=== PATIENT | male | born 1975 | race Caucasian/White ===

== ENCOUNTER 2018-09-16 13:21 | Observation (INO) ==
--- NOTE | 2018-09-16 14:18 | Emergency Department Note ---
Disposition Clinical Impression: Lower extremity edema Deep vein thrombosis of lower extremity Qualifiers: Affected thrombotic vein of extremity: unspecified lower extremity proximal vein Chronicity: acute Laterality: right Qualified Code(s): I82.4Y1 - Acute embolism and thrombosis of unspecified deep veins of right proximal lower extremity Disposition: Admitted As Inpatient Condition: Good Referrals: NONE,PCP [Non-Partnered Physician] - Forms: ED Satisfaction Letter Time of Disposition: 16:46 Extremity Problem HPI - General Chief complaint: ED Extremity Problem,Nontraumatic Stated complaint: Right leg swelling Time Seen by Provider: 09/16/18 13:32 Source: patient Limitations: no limitations Nursing Notes Reviewed: Yes Vital Signs Reviewed: Yes - History of Present Illness HPI Narrative: Patient is a 43-year-old male whose presenting with right lower leg swelling. Patient with history of hypertension hyperlipidemia. Patient states about one week and a half ago he began to have right leg swelling which progressed up into the thigh, he denies any redness, pain or difficulty ambulating. He denies any similar symptoms in the past. He is currently not on any blood thinners or anti-coagulation medication. No recent fevers, chills, insect bite or trauma. Patient states that a family member has also been diagnosed with multiple DVTs in the past, he denies any history personally or history of pulmonary embolism. 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 Pain Scale: 3 - Related Data Allergies Allergy/AdvReac Type Severity Reaction Status Date / Time No Known Allergies Allergy Verified 09/16/18 13:26 Review of Systems: In addition to that documented in the HPI above, the additional ROS was obtained: General: Denies fever. Denies chills. Denies weight loss. Denies behavioral change. Eyes: Denies visual changes. ENT: Denies nasal congestion. Denies sore throat. Denies hearing change. Cardio: Denies chest pain. Denies palpitations. Respiratory: Denies cough. Denies shortness of breath. Denies wheezing. GI: Denies nausea, Denies vomiting, or diarrhea. Denies hematochezia denies melena. Denies abdominal pain. : Denies dysuria, hematuria, or urinary retention MSK: Affirms right leg swelling without pain Neuro: Denies slurred speech. Denies numbness or tingling. Denies focal weakness. Denies headache. Denies loss of consciousness. Psych: Denies mood changes. Past Medical History - Past Medical History Medical history: Reports: no medical history Psychiatric history: Reports: no psych history - Social History Smoking Status: Former smoker Smokeless Tobacco Status: No Alcohol use: Reports: none Drug use: Reports: none Physical Exam General: Conversant. No apparent distress. Follow commands. Appears stated age. Neck: No JVD. Trachea midline. Neck supple. Eyes: PERRL. No scleral icterus. HENT: Normocephalic and atraumatic. Moist mucus membranes. Cardiovascular: Regular rate and rhythm. Normal S1 and S2. No murmurs appreciated. Normal capillary refill. Extremities well perfused with 2+ distal pulses bilaterally. Patient with extensive swelling to the entire right lower extremity extending proximally to the upper thigh, no redness, erythema, there is no posterior calf pain, there is no cord felt to the posterior aspect, there is no cellulitic skin changes. Pulmonary: Normal and equal breath sounds bilaterally, anteriorly and po steriorly. No wheezes, rales, or rhonchi. Not in respiratory distress. Speaks in full sentences. Abdomen: Soft, nondistended, without tenderness. No bruits or masses. No guarding or rebound. Neuro: Alert and oriented x3. No slurred speech. No focal deficits noted. Skin: No rashes noted on visualized skin. Musculoskeletal: No bony abnormalities visualized. Moves all extremities. Psych: Normal mood. Pleasant. Makes appropriate eye contact. - General Limitations: no limitations General appearance: alert, in no apparent distress Course Vital Signs Temperature 97.5 F L 09/16/18 13:26 Pulse Rate 90 09/16/18 13:26 Respiratory Rate 09/16/18 13:26 Blood Pressure 163/106 09/16/18 13:26 O2 Sat by Pulse Oximetry 99 09/16/18 13:26 Temperature 97.5 F L 09/16/18 13:51 Pulse Rate 90 09/16/18 13:51 Respiratory Rate 20 09/16/18 13:51 Blood Pressure 163/106 09/16/18 13:51 O2 Sat by Pulse Oximetry 99 09/16/18 13:51 Oxygen Delivery Oxygen Delivery Room Air Extremity Problem, Nontraumati - MDM Narrative Medical decision making narrative: Patient is a 43-year-old male who is presenting with right leg swelling. On arrival, patient is alert and no acute distress, alert and oriented 3, he does have extensive swelling to the right lower leg greater than the left, there is no erythema, pulses distally are intact. Sensation as well as range of motion are intact, no difficulty with ambulation. CBC, BMP as well as PT, INR as well as PTT are performed. Venous ultrasound of the right lower extremity will be performed as well. Laboratory work was reviewed and unremarkable. Venous ultrasound revealed extensive venous deep thrombus with SVT as well. Given the extensive nature of the thrombus, would recommend at this point in time the patient be admitted for heparin and continued evaluation and follow-up. I did discuss this with the patient, he agrees to admission at this point in time. Patient is remained stable and in no acute distress. Patient was signed out to the hospitalist, who is excepted the patient. - Medical Records Medical records reviewed: Yes I reviewed the patient's medical records. - Lab Data Lab results reviewed: Yes I reviewed the patient's lab results. Result diagrams: 09/16/18 14:17 09/16/18 14:17 Lab Results 09/16/18 09/16/18 09/16/18 Range/Units 14:17 14:17 14:17 WBC 9.4 (4.3-11.1) K/mcL RBC 4.60 (4.19-5.50) M/mcL Hgb 14.5 (12.9-16.9) g/dL Hct 43.8 (37.5-50.1) % MCV 95.2 (83.0-100.0) fL MCH 31.5 (28.0-33.3) pg MCHC 33.1 (31.6-35.5) g/dL RDW 13.7 (11.5-14.5) % Plt Count 247 (140-400) K/mcL MPV 9.4 (9.4-12.4) fL Immature Gran % 0.5 (0-4) % Seg Neutrophils % 55.3 % Lymphocytes % 26.6 % Monocytes % 10.5 % Eosinophils % 6.5 % Basophils % 0.6 % Neutrophils # 5.2 (1.6-8.9) K/mcL Lymphocytes # 2.5 (0.6-4.6) K/mcL Monocytes # 1.0 (0.0-1.3) K/mcL Eosinophils # 0.6 (0.0-0.6) K/mcL Basophils # 0.1 (0.0-0.2) K/mcL PT 10.7 (9.4-12.1) Seconds INR 0.9 APTT 30.9 (26.0-36.0) Seconds Sodium 141 (136-145) mEq/L Potassium 4.2 (3.5-5.1) mEq/L Chloride 106 (98-107) mEq/L Carbon Dioxide 23 (23-29) mEq/L BUN 15 (6-20) mg/dL Creatinine 1.13 (0.70-1.30) mg/dL Est GFR ( Amer) > 60 (> 60) Est GFR (Non-Af Amer) > 60 (> 60) BUN/Creatinine Ratio 13 (6-26) Glucose 108 H (70-105) mg/dL Calculated Osmolality 293 (280-300) Calcium 9.3 (8.6-10.3) mg/dL - Radiology Data Radiology results reviewed: Yes I reviewed the patient's radiology results. 09/16/18 15:04 - Vascular Preliminary by Mayte Ang Acct Num: [id number] : 1975 Patient Age: 43 Venous Doppler Preliminary Report POSITIVE DVT right lower extremity +EIV (groin) partial thrombus +CFV (groin) partial thrombus +SFV (thigh) obstructive thrombus +POP V (behind knee) partial thrombus +BRYAN V (calf) partial thrombus POSITIVE SVT right lower extremity +GSV (at SFV junction) partial thrombus Initialized on 09/16/18 15:04 - END OF NOTE Attestation Statement - Attestation Attestation: I, Kirill Mendes DO, examined this patient [id number] and my medical decision-making was reviewed with Dr. Dakota Corley , Resident Physician. I agree with the documented findings, disposition and treatment plan as described except to the extent set forth below. I personally supervised and was present for the coello/critical portions of the procedures completed by the resident documented below. Please see my progress notes for details.
--- NOTE | 2018-09-16 14:22 | Emergency Department Note ---
Disposition Clinical Impression: Lower extremity edema, Deep vein thrombosis of lower extremity Disposition: Admitted As Inpatient Condition: Fair Referrals: NONE,PCP [Primary Care Provider] - Forms: ED Satisfaction Letter Time of Disposition: 16:38 General Adult HPI - General Chief complaint: ED Extremity Problem,Nontraumatic Stated complaint: Right leg swelling Time Seen by Provider: 09/16/18 13:32 Source: patient Limitations: no limitations - History of Present Illness Pain Scale: 3 - Related Data Allergies Allergy/AdvReac Type Severity Reaction Status Date / Time No Known Allergies Allergy Verified 09/16/18 13:26 Past Medical History - Past Medical History Medical history: Reports: no medical history Psychiatric history: Reports: no psych history - Social History Smoking Status: Former smoker Smokeless Tobacco Status: No Alcohol use: Reports: none Drug use: Reports: none Physical Exam - General Limitations: no limitations General appearance: alert, in no apparent distress Course Vital Signs Temperature 97.5 F L 09/16/18 13:26 Pulse Rate 90 09/16/18 13:26 Respiratory Rate 20 09/16/18 13:26 Blood Pressure 163/106 09/16/18 13:26 O2 Sat by Pulse Oximetry 99 09/16/18 13:26 Temperature 97.5 F L 09/16/18 13:51 Pulse Rate 90 09/16/18 13:51 Respiratory Rate 20 09/16/18 13:51 Blood Pressure 163/106 09/16/18 13:51 O2 Sat by Pulse Oximetry 09/16/18 13:51 Oxygen Delivery Oxygen Delivery Room Air Medical Decision Making - Lab Data Result diagrams: 09/16/18 14:17 09/16/18 14:17 Lab Results 09/16/18 09/16/18 09/16/18 Range/Units 14:17 14:17 14:17 WBC 9.4 (4.3-11.1) K/mcL RBC 4.60 (4.19-5.50) M/mcL Hgb 14.5 (12.9-16.9) g/dL Hct 43.8 (37.5-50.1) % MCV 95.2 (83.0-100.0) fL MCH 31.5 (28.0-33.3) pg MCHC 33.1 (31.6-35.5) g/dL RDW 13.7 (11.5-14.5) % Plt Count 247 (140-400) K/mcL MPV 9.4 (9.4-12.4) fL Immature Gran % 0.5 (0-4) % Seg Neutrophils % 55.3 % Lymphocytes % 26.6 % Monocytes % 10.5 % Eosinophils % 6.5 % Basophils % 0.6 % Neutrophils # 5.2 (1.6-8.9) K/mcL Lymphocytes # 2.5 (0.6-4.6) K/mcL Monocytes # 1.0 (0.0-1.3) K/mcL Eosinophils # 0.6 (0.0-0.6) K/mcL Basophils # 0.1 (0.0-0.2) K/mcL PT 10.7 (9.4-12.1) Seconds INR 0.9 APTT 30.9 (26.0-36.0) Seconds Sodium 141 (136-145) mEq/L Potassium 4.2 (3.5-5.1) mEq/L Chloride 106 (98-107) mEq/L Carbon Dioxide 23 (23-29) mEq/L BUN 15 (6-20) mg/dL Creatinine 1.13 (0.70-1.30) mg/dL Est GFR ( Amer) > 60 (> 60) Est GFR (Non-Af Amer) > 60 (> 60) BUN/Creatinine Ratio 13 (6-26) Glucose 108 H (70-105) mg/dL Calculated Osmolality 293 (280-300) Calcium 9.3 (8.6-10.3) mg/dL Attestation Statement - Attestation Attestation: I, Kirill Mendes DO, examined this patient [id number] and my medical decision-making was reviewed with Dr. Dakota Corley , Resident Physician. I agree with the documented findings, disposition and treatment plan as described except to the extent set forth below. I personally supervised and was present for the coello/critical portions of the procedures completed by the resident documented below. Please see my progress notes for details. 43-year-old male presents emergency room for evaluation of right lower extremity swelling. Patient does travel 1. The time of vehicle. Denies any history of blood clots at this time but does have significant family history of blood clots and a potential bleeding disorder. Patient denies any chest pain shortness of breath headache vision changes nausea vomiting. Currently denying fevers or chills. He has not had any trauma or injuries or other abnormalities. Vital signs reviewed and are stable. Patient is alert he is oriented. Lungs are clear heart is regular. Abdomen is soft. Femoral pulses are intact. DP and PT pulses are intact and symmetrical bilaterally. Patient does have visible appreciable swelling to the entire right leg. He has no redness warmth or abnormality noted at this time. Patient is otherwise currently stable. Screening labs will be ordered at this point in case the patient does have a positive finding on the ultrasound. No other acute issues noted during the physical exam that could account for the presentation at this time. Doppler study of the right lower extremity will be completed and disposition determined. See detailed documentation the physical exam, medical intervention, medical decision-making and disposition the resident physician's note. No critical care applied the patient's treatment course at this time. 1500 Patient is found to have multiple areas of thrombosis in the leg. Discussion will be had about possible admission and heparinization considering the context and extent of the clot. Patient is otherwise clinically stable at this point. Labs are still pending. 1600 Patient was discussed with the hospitalist Dr. Smith. Clot burden was discussed and reviewed. Coagulation studies are going to be ordered by the hospitals group part of the heparin being started. Patient will be admitted for symptomatic control management of what appears to be extensive clot. He has no acute signs of pulmonary emboli or other presenting symptoms that are concerning for vascular abnormality or requirement for thrombectomy at this time. Patient will be monitored in the inpatient setting for continued care.
[2018-09-16 14:30] LABS: Basophils # 0.1 K/mcL (0.0-0.2); Basophils % 0.6 %; Eosinophils # 0.6 K/mcL (0.0-0.6); Eosinophils % 6.5 %; Hematocrit 43.8 % (37.5-50.1); Hemoglobin 14.5 g/dL (12.9-16.9); Immature Granulocytes % 0.5 % (0-4); Lymphocytes # 2.5 K/mcL (0.6-4.6); Lymphocytes % 26.6 %; Mean Corpuscular HGB Conc 33.1 g/dL (31.6-35.5); Mean Corpuscular Hemoglobin 31.5 pg (28.0-33.3); Mean Corpuscular Volume 95.2 fL (83.0-100.0); Mean Platelet Volume 9.4 fL (9.4-12.4); Monocytes % 10.5 %; Neutrophils # 5.2 K/mcL (1.6-8.9); Platelet Count 247 K/mcL (140-400); Red Cell Distribution Width 13.7 % (11.5-14.5); Segmented Neutrophils % 55.3 %; White Blood Count 9.4 K/mcL (4.3-11.1)
[2018-09-16 14:34] LABS: INR 0.9; Prothrombin Time 10.7 Seconds (9.4-12.1)
[2018-09-16 14:36] LABS: Activated Partial Thrombo Time 30.9 Seconds (26.0-36.0)
[2018-09-16 14:48] LABS: BUN/Creatinine Ratio 13 (6-26); Blood Urea Nitrogen 15 mg/dL (6-20); Calcium 9.3 mg/dL (8.6-10.3); Carbon Dioxide 23 mEq/L (23-29); Chloride 106 mEq/L (98-107); Glucose 108 mg/dL (70-105); Osmolality,Calculated 293 (280-300); Potassium 4.2 mEq/L (3.5-5.1); Sodium 141 mEq/L (136-145); eGFR For African Americans > 60 (> 60); eGFR For Non-African Americans > 60 (> 60)
[2018-09-16] MEDS ORDERED: *HR* Heparin 5,000 UNIT/ML VIAL IVP ONE (16:33)
[2018-09-16] MEDS ORDERED: *HR* Heparin 5,000 UNIT/ML VIAL IVP PRN ×2 (16:33)
[2018-09-16] MEDS ORDERED: Heparin 25,000 UNIT/250 ML D5W 25,000 UNIT/250 ML IV.SOLN IVC SCH (16:45)
[2018-09-16] MEDS ORDERED: Naloxone 0.4 MG/ML INJ IVP PRN (17:08)
[2018-09-16] MEDS ORDERED: Ondansetron 4 MG/2 ML VIAL IVP PRN (17:08)
[2018-09-16 17:48] LABS: Hematocrit 41.3 % (37.5-50.1); Hemoglobin 13.9 g/dL (12.9-16.9); Mean Corpuscular HGB Conc 33.7 g/dL (31.6-35.5); Mean Corpuscular Hemoglobin 32.1 pg (28.0-33.3); Mean Corpuscular Volume 95.4 fL (83.0-100.0); Mean Platelet Volume 9.7 fL (9.4-12.4); Platelet Count 236 K/mcL (140-400); Red Blood Count 4.33 M/mcL (4.19-5.50); Red Cell Distribution Width 13.7 % (11.5-14.5); White Blood Count 8.6 K/mcL (4.3-11.1)
[2018-09-16] MEDS ORDERED: Isovue-370 500 ML BOTTLE IVP ONE (17:56)
--- NOTE | 2018-09-16 18:00 | Internal Med History&Physical ---
Date of Encounter: 09/16/18 Time of Encounter: 17:50 Internal Medicine - H&P: HPI Chief complaint: Right leg pain and swelling for 10 days duration History of present illness: Mr. An is a 43 year old male with no significant pmh presenting with complaints of right lower extremity swelling of 10 days duration. 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 He does admit that his father had multiple DVTs. He comes in with complaints of right lower extremity swelling and pain of about 10 days duration. Swelling has been on and off intermittently. Pain in the right calf has been gradually getting worse and he has begun to experience tingling. He also feels like the skin around the calf is getting more tense. He denies any chest pain or shortness of breath In the ER, a doppler of the lower extremity revealed extensive right sided DVT. He was started on a heparin drip and is being admitted for further management Past Med Surg Social Fam HX - Past Medical History Medical history: no medical history Psychiatric history: no psych history - Social History Smoking Status: Former smoker Smokeless Tobacco Status: No Alcohol use: none Drug use: none Internal Medicine - H&P: Meds Allergy/AdvReac Type Severity Reaction Status Date / Time No Known Allergies Allergy Verified 09/16/18 13:26 All Systems PM: A 10-system review of systems was performed and is negative for pertinent findings except as documented above in the HPI. - Constitutional Constitutional: no chills, no fever(s), no night sweats - EENT Eyes: no change in vision, no discharge, no pain, no photophobia Ears: no ear discharge, no ear pain, no tinnitus Nose, mouth and throat: no dysphagia, no nasal discharge, no neck pain, no sore throat - Cardiovascular Cardiovascular ROS IM: no chest pain, no diaphoresis, no dyspnea, no lightheadedness, no palpitations, no syncope - Respiratory Respiratory: no cough, no dyspnea, no wheezing, no excessive phlegm production - Gastrointestinal Gastrointestinal: no abdominal pain, no diarrhea, no hematemesis, no hematochezia, no melena, no nausea, no vomiting - Musculoskeletal Musculoskeletal ROS IM: tingling, no numbness Additional comments: Right lower extremity swelling - Integumentary Integumentary IM: no rash, no unusual bruising - Neurological Neurological ROS: no confusion, no convulsions, no focal weakness, no numbness, no tingling, no tremor(s) - Hematologic/Lymphatic Hematologic/Lymphatic: no easy bruising - Constitutional Vitals: Temp Pulse Resp BP Pulse Ox 97.5 F L 90 20 163/106 99 09/16/18 13:51 09/16/18 13:51 09/16/18 13:51 09/16/18 13:51 09/16/18 13:51 Exam: Right lower extremity tenderness and swelling - Head Head exam: Present: atraumatic, normocephalic - Eye Eye exam: Present: PERRL, conjuntiva pink, sclera anicteric Pupils: Present: PERRL - Neck Neck exam general surgery: Present: supple, trachea midline. Absent: lymphadenopathy - Respiratory Respiratory exam: Present: CTAB. Absent: accessory muscle use, rales, rhonchi, wheezes - Cardiovascular Cardiovascular exam: Present: RRR, +S1, +S2. Absent: diastolic murmur, gallop, rubs, systolic murmur - GI/Abdominal GI/Abdominal exam: Present: normal bowel sounds, soft, no peritoneal signs. Absent: distended, tenderness - Extremities Exam Extremities exam: Present: warm, radial pulses palpable and symmetrical. Absent: calf tenderness, cyanotic, pedal edema - Neurological Exam Neurological exam: Present: CN II-XII intact, oriented X3, no focal deficits. Absent: pronater drift, facial droop, speech deficit - Skin Skin exam: Present: dry, intact Internal Med - H&P Results - Labs CBC & Chem 7: 09/16/18 17:12 09/16/18 14:17 Labs: Short CBC 09/16/18 09/16/18 Range/Units 14:17 17:12 WBC 9.4 8.6 (4.3-11.1) K/mcL Hgb 14.5 13.9 (12.9-16.9) g/dL Hct 43.8 41.3 (37.5-50.1) % Plt Count 247 236 (140-400) K/mcL Neutrophils # 5.2 (1.6-8.9) K/mcL BMP 09/16/18 14:17 Sodium 141 Potassium 4.2 Chloride 106 Carbon Dioxide 23 BUN 15 Creatinine 1.13 Glucose 108 H Calcium 9.3 - Assessment and Plan (1) Deep vein thrombosis of lower extremity Current Visit: Yes Status: Acute Assessment and plan: Patient comes in with right leg swelling and pain of 10 days duration Doppler showed extensive right sided DVT withe heavy clot burden Hematology and vascular surgery recs appreciated Start on heparin drip and bridge to xarelto. Hypercoagulability testing per heme Qualifiers: Affected thrombotic vein of extremity: unspecified lower extremity proximal vein Chronicity: acute Laterality: right Qualified Code(s): I82.4Y1 - Acute embolism and thrombosis of unspecified deep veins of right proximal lower extremity (2) Hypertension Current Visit: Yes Status: Acute Assessment and plan: Start on amlodipine 5mg po daily Qualifiers: Qualified Code(s): I10 - Essential (primary) hypertension (3) DVT prophylaxis Current Visit: Yes Status: Acute Assessment and plan: On heparin drip - Time Spent With Patient Total time spent is greater than 50% in coordination of care (as documented) at patient's floor/unit and/or counseling patient:
[2018-09-16] MEDS: amLODIPine 5 MG TABLET PO SCH (22:40)
[2018-09-17 06:37] VITALS: BP 133/91
[2018-09-17 06:44] LABS: Basophils # 0.1 K/mcL (0.0-0.2); Basophils % 0.7 %; Eosinophils # 0.6 K/mcL (0.0-0.6); Eosinophils % 7.1 %; Hematocrit 42.2 % (37.5-50.1); Immature Granulocytes % 1.1 % (0-4); Lymphocytes # 2.7 K/mcL (0.6-4.6); Lymphocytes % 32.1 %; Mean Corpuscular HGB Conc 33.2 g/dL (31.6-35.5); Mean Corpuscular Hemoglobin 31.1 pg (28.0-33.3); Mean Corpuscular Volume 93.8 fL (83.0-100.0); Mean Platelet Volume 9.8 fL (9.4-12.4); Monocytes # 0.9 K/mcL (0.0-1.3); Monocytes % 10.7 %; Neutrophils # 4.1 K/mcL (1.6-8.9); Platelet Count 233 K/mcL (140-400); Red Cell Distribution Width 13.8 % (11.5-14.5); Segmented Neutrophils % 48.3 %; White Blood Count 8.5 K/mcL (4.3-11.1)
[2018-09-17 07:05] LABS: BUN/Creatinine Ratio 17 (6-26); Blood Urea Nitrogen 16 mg/dL (6-20); Carbon Dioxide 25 mEq/L (23-29); Chloride 107 mEq/L (98-107); Glucose 98 mg/dL (70-105); Osmolality,Calculated 289 (280-300); Phosphorous 2.8 mg/dL (2.7-4.5); Potassium 4.1 mEq/L (3.5-5.1); Sodium 139 mEq/L (136-145); eGFR For African Americans > 60 (> 60); eGFR For Non-African Americans > 60 (> 60)
[2018-09-17] MEDS: amLODIPine 5 MG TABLET PO SCH (07:45)
--- NOTE | 2018-09-17 08:06 | Internal Med Progress Note ---
Hospitalist Progress Note - Encounter Date of Encounter: 09/17/18 Time of Encounter: 08:00 - Exam Vitals: Temp Pulse Resp BP Pulse Ox 98.5 F 67 14 133/91 98 09/17/18 06:36 09/17/18 06:36 09/17/18 06:36 09/17/18 06:36 09/17/18 06:36 Exam: Right lower extremity tenderness and swelling - Assessment and Plan (1) Deep vein thrombosis of lower extremity Current Visit: Yes Status: Acute Assessment and Plan: Patient comes in with right leg swelling and pain of 10 days duration Doppler showed extensive right sided DVT withe heavy clot burden Hematology and vascular surgery recs appreciated Start on heparin drip and bridge to xarelto. Hypercoagulability testing per heme (2) Hypertension Current Visit: Yes Status: Acute Assessment and Plan: Start on amlodipine 5mg po daily (3) DVT prophylaxis Current Visit: Yes Status: Acute Assessment and Plan: On heparin drip - Time Spent with Patient Total time spent is greater than 50% in coordination of care (as documented) at patient's floor/unit and/or counseling patient: Internal Medicine: Result - Labs CBC & Chem 7: 09/17/18 06:09 09/17/18 06:09 Labs: Short CBC 09/16/18 09/16/18 09/17/18 Range/Units 14:17 17:12 06:09 WBC 9.4 8.6 8.5 (4.3-11.1) K/mcL Hgb 14.5 13.9 14.0 (12.9-16.9) g/dL Hct 43.8 41.3 42.2 (37.5-50.1) % Plt Count 247 236 233 (140-400) K/mcL Neutrophils # 5.2 4.1 (1.6-8.9) K/mcL BMP 09/16/18 09/17/18 14:17 06:09 Sodium 141 139 Potassium 4.2 4.1 Chloride 106 107 Carbon Dioxide 23 25 BUN 15 16 Creatinine 1.13 0.95 Glucose 108 H 98 Calcium 9.3 9.0 - ABG Interpretation ABG results: PT/INR, D-dimer PT 10.7 Seconds (9.4-12.1) 09/16/18 14:17 - Impressions Impressions Chest CTA 09/16/18 17:56 IMPRESSION: There is truncation of the right middle lobe pulmonary artery without definitive filling defect otherwise. This is age indeterminate. A prior pulmonary embolus is favored over an acute pulmonary embolus given the lack discrete filling defects, lack of airspace opacity in the right lung and the lack of right-sided pleural effusion. If concern continues, consider V/Q scan. Otherwise no findings to suggest acute pulmonary artery embolus. No findings to suggest right heart strain D/ / Vazquez Reyes / Vazquez Reyes Interpreting Provider: Vazquez Reyes Consult Discharge Plan - Plan Referrals: NONE,PCP [Primary Care Provider] - (1) Deep vein thrombosis of lower extremity Qualifiers: Affected thrombotic vein of extremity: unspecified lower extremity proximal vein Chronicity: acute Laterality: right Qualified Code(s): I82.4Y1 - Acute embolism and thrombosis of unspecified deep veins of right proximal lower extremity (2) Hypertension Qualifiers: Qualified Code(s): I10 - Essential (primary) hypertension
--- NOTE | 2018-09-17 08:14 | Discharge Summary ---
Date of Encounter: 09/17/18 Time of Encounter: 08:00 - Discharge Diagnosis (1) Deep vein thrombosis of lower extremity Priority: Primary Status: Acute Assessment and Plan: 43 year old male with no significant pmh presenting with complaints of right lower extremity swelling of 10 days duration. 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 He does admit that his father had multiple DVTs. He comes in with complaints of right lower extremity swelling and pain of about 10 days duration. Swelling has been on and off intermittently. Pain in the right calf has been gradually getting worse and he has begun to experience tingling. He also feels like the skin around the calf is getting more tense. He denies any chest pain or shortness of breath In the ER, a doppler of the lower extremity revealed extensive right sided DVT. He was started on a heparin drip and is being admitted for further management He was assessed with right leg swelling and pain of 10 days duration secondary to extensive right sided DVT. He was transitioned from heparin drip to xarelto. Discussed with vascular surgery, appply BERONICA schneider for swelling and follow up with vascular in one week Qualifiers: Affected thrombotic vein of extremity: unspecified lower extremity proximal vein Chronicity: acute Laterality: right Qualified Code(s): I82.4Y1 - Acute embolism and thrombosis of unspecified deep veins of right proximal lower extremity (2) Hypertension Priority: Primary Status: Acute Qualifiers: Qualified Code(s): I10 - Essential (primary) hypertension (3) DVT prophylaxis Priority: Primary Status: Acute Hospital course: Mr. An is a 43 year old male - Time Spent with Patient Total time spent providing and/or coordinating discharge services: - Discharge Medications Prescriptions: New Rivaroxaban [Xarelto] 20 mg PO DAILY 60 Days #60 tablet amLODIPine [Norvasc] 5 mg PO DAILY #30 tablet Rivaroxaban [Xarelto] 15 mg PO BIDWM 21 Days #42 tablet Home Medications: Rivaroxaban [Xarelto] 15 mg PO BIDWM 21 Days #42 tablet 09/17/18 [Rx] Rivaroxaban [Xarelto] 20 mg PO DAILY 60 Days #60 tablet 09/17/18 [Rx] amLODIPine [Norvasc] 5 mg PO DAILY #30 tablet 09/17/18 [Rx] Allergies/Adverse Reactions: Allergy/AdvReac Type Severity Reaction Status Date / Time No Known Allergies Allergy Verified 09/16/18 13:26 Date of admission: 09/16/18 18:25 Primary care physician: PCP NONE Consults: 09/16/18 17:09 Consult to Oncology Hematology [CONS] Routine Consulting Provider: Rogelio Patino Reason for Consult: extensive right sided dvt Call Completed: No 09/16/18 17:10 Consult to Vascular Surgery [CONS] Routine Consulting Provider: Vascular Surgery Purchase Reason for Consult: extensive right sided dvt Call Completed: No - Constitutional Vitals: Temp Pulse Resp BP Pulse Ox 98.5 F 67 14 133/91 98 09/17/18 06:36 09/17/18 06:36 09/17/18 06:36 09/17/18 06:36 09/17/18 06:36 Exam: Right lower extremity tenderness and swelling - Head Head exam: Present: atraumatic, normocephalic - Respiratory Respiratory exam: Present: CTAB. Absent: accessory muscle use, rales, rhonchi, wheezes - Cardiovascular Cardiovascular exam: Present: RRR, +S1, +S2. Absent: diastolic murmur, gallop, rubs, systolic murmur - Neurological Exam Neurological exam: Present: CN II-XII intact, oriented X3, no focal deficits. Absent: pronater drift, facial droop, speech deficit - Patient Status Disposition: Home, Self-Care Condition: Good - Discharge Instructions Instructions: Amlodipine (By mouth), Rivaroxaban (By mouth), BERONICA Schneider (DC), BERONICA Schneider (GEN) Follow Up With: Rogelio Patino MD [Partnered Physician] - Vazquez Palomo MD [Partnered Physician] - Jose A Olmos [Non-Partnered Physician] -
[2018-09-17] MEDS ORDERED: *HR* Rivaroxaban 15 MG TABLET PO SCH (09:00)
== END 2018-09-17 12:35 | disposition home or self-care (01) ==
LOC: EMEROOARM 13:21 → 2NENU 13:21
PROVIDERS: ADMIT Internal Medicine Nephrology; ATTEND Internal Medicine Nephrology